=== PATIENT | male | born 1970 | race Caucasian/White ===

== ENCOUNTER 2020-05-21 06:07 | Day surgery (SDC) | payer BC ==
[2020-05-16 13:56] LABS: CARBON DIOXIDE 29.3 mmol/L (21-32); CREATININE SERUM 1.8 mg/dL (0.7-1.3)
[2020-05-16 14:22] LABS: PLATELET COUNT 492 x10^3mcL (130-400)
--- NOTE | 2020-05-17 17:47 | NUR ---
PER ANESTHESIOLOGIST DR HERNANDEZ TO REPEAT BMP ON ADMISSION.
[~2020-05-21] VITALS: Ht 188 cm; Wt 131.5 kg
[2020-05-21 06:37] VITALS: BP 126/75
[2020-05-21 07:28] LABS: CALCIUM 8.8 mg/dL (8.5-10.1); CARBON DIOXIDE 25.8 mmol/L (21-32); CREATININE SERUM 1.5 mg/dL (0.7-1.3); POTASSIUM SERUM 4.8 mmol/L (3.5-5.1)
[2020-05-21 16:30] VITALS: BP 122/78
== END 2020-05-21 16:05 | disposition home or self-care (01) ==
LOC: DS 06:07
PROVIDERS: ATTEND Podiatrist
DX: M86.8X7 Other osteomyelitis, ankle and foot (principal); E11.621 Type 2 diabetes mellitus with foot ulcer; E11.22 Type 2 diabetes mellitus with diabetic chronic kidney disease; I12.9 Hypertensive chronic kidney disease with stage 1 through stage 4 chronic kidney disease, or unspecified chronic kidney disease; N18.3 Chronic kidney disease, stage 3 (moderate); E11.42 Type 2 diabetes mellitus with diabetic polyneuropathy; E66.9 Obesity, unspecified; Z68.37 Body mass index [BMI] 37.0-37.9, adult; Z79.899 Other long term (current) drug therapy; Z79.84 Long term (current) use of oral hypoglycemic drugs
CPT/HCPCS: 36569; 82962; J2250; J2405; J2704; J3010; J3370; J3490; J7030; Q0092; U0003-CS

== ENCOUNTER 2020-06-11 14:16 | Inpatient (IN) | payer BC ==
[~2020-06-11] VITALS: Ht 188 cm; Wt 135.2 kg
[2020-06-11 14:33] VITALS: Ht 188 cm; Wt 135.2 kg
[2020-06-11 16:33] LABS: BASOPHIL % 0.3 % (0-2); PLATELET COUNT 329 x10^3mcL (130-400)
[2020-06-11 16:36] LABS: RED CELL DISTRIBUTION WIDTH 17.3 % (11.5-14.5)
[2020-06-11 16:50] LABS: ALBUMIN 3.1 g/dL (3.4-5.0); BILIRUBIN TOTAL 0.4 mg/dL (0.20-1.00); CREATININE SERUM 1.4 mg/dL (0.7-1.3); POTASSIUM SERUM 4.8 mmol/L (3.5-5.1); TOTAL PROTEIN, SERUM 9.1 g/dL (6.4-8.2)
[2020-06-11] MEDS ORDERED: KAPSPARGO SPRI100 MG PO (17:18)
[2020-06-11] MEDS ORDERED: ZESTRIL20 MG PO (17:19)
[2020-06-11] MEDS ORDERED: JANUVIA100 M1 PO (17:19)
[2020-06-11] MEDS ORDERED: METFORMIN500 M1 PO (17:19)
[2020-06-11] MEDS ORDERED: NORCO 10-325 T1 EACH PO (17:20)
[2020-06-11] MEDS ORDERED: LASIX20 MG PO (17:20)
[2020-06-11] MEDS ORDERED: VANCOCIN125 MG PO (17:21)
[2020-06-11 18:54] LABS: CHOLESTEROL/HDL RATIO 7.8; MAGNESIUM 2.2 mg/dL (1.8-2.4); PHOSPHOROUS 4.4 mg/dL (2.5-4.9)
[2020-06-11 22:16] VITALS: BP 129/86
[2020-06-12 05:28] VITALS: BP 134/86
[2020-06-12 06:31] LABS: BASOPHIL % 0.6 % (0-2); PLATELET COUNT 237 x10^3mcL (130-400)
[2020-06-12 06:39] LABS: RED CELL DISTRIBUTION WIDTH 17.2 % (11.5-14.5)
[2020-06-12 06:44] LABS: CALCIUM 8.5 mg/dL (8.5-10.1); CARBON DIOXIDE 16.9 mmol/L (21-32); CREATININE SERUM 1.5 mg/dL (0.7-1.3); MAGNESIUM 2.5 mg/dL (1.8-2.4); PHOSPHOROUS 4.6 mg/dL (2.5-4.9); POTASSIUM SERUM 4.9 mmol/L (3.5-5.1)
[2020-06-12 08:33] VITALS: BP 125/73
[2020-06-12 12:04] VITALS: BP 133/84
[2020-06-12 16:08] VITALS: BP 120/76
[2020-06-12 20:57] VITALS: BP 142/89
[2020-06-13 05:23] VITALS: BP 144/82
[2020-06-13 12:16] VITALS: BP 112/52
[2020-06-13 12:17] LABS: BASOPHIL % 0.6 % (0-2); PLATELET COUNT 243 x10^3mcL (130-400)
[2020-06-13 12:22] LABS: RED CELL DISTRIBUTION WIDTH 17.4 % (11.5-14.5)
[2020-06-13 12:30] LABS: CALCIUM 8.5 mg/dL (8.5-10.1); CARBON DIOXIDE 26.1 mmol/L (21-32); CHLORIDE SERUM 103 mmol/L (98-107); CREATININE SERUM 1.3 mg/dL (0.7-1.3); GFR1 > 60 mL/min; GLUCOSE SERUM 99 mg/dL (74-106); PHOSPHOROUS 4.2 mg/dL (2.5-4.9); SODIUM SERUM 135 mmol/L (136-145)
[2020-06-13 13:04] LABS: POTASSIUM SERUM 5.6 mmol/L (3.5-5.1)
[2020-06-13 15:59] VITALS: BP 113/69
[2020-06-13 20:32] VITALS: BP 125/78
[2020-06-13 20:58] LABS: CALCIUM 8.3 mg/dL (8.5-10.1); CARBON DIOXIDE 26.4 mmol/L (21-32); CREATININE SERUM 1.4 mg/dL (0.7-1.3); POTASSIUM SERUM 4.8 mmol/L (3.5-5.1)
[2020-06-14 05:24] VITALS: BP 140/83
[2020-06-14 09:26] VITALS: BP 111/78
[2020-06-14 13:23] VITALS: BP 132/72
[2020-06-14 18:12] VITALS: BP 141/82
[2020-06-14 21:17] VITALS: BP 132/70
[2020-06-15 06:19] LABS: CALCIUM 9.1 mg/dL (8.5-10.1); CARBON DIOXIDE 28.5 mmol/L (21-32); CREATININE SERUM 1.4 mg/dL (0.7-1.3); PHOSPHOROUS 4.3 mg/dL (2.5-4.9); POTASSIUM SERUM 4.8 mmol/L (3.5-5.1)
[2020-06-15 06:21] VITALS: BP 143/78
[2020-06-15 06:21] LABS: ALBUMIN 2.7 g/dL (3.4-5.0); BASOPHIL % 0.6 % (0-2); PLATELET COUNT 204 x10^3mcL (130-400); RED CELL DISTRIBUTION WIDTH 17.7 % (11.5-14.5)
[2020-06-15 09:46] VITALS: BP 140/76
[2020-06-15 14:06] VITALS: BP 136/72
[2020-06-15 18:25] VITALS: BP 140/83
[2020-06-15 21:11] VITALS: BP 127/81
[2020-06-16 05:14] VITALS: BP 132/60
[2020-06-16 08:26] VITALS: BP 128/76
[2020-06-16] MEDS ORDERED: KAPSPARGO SPRI100 MG PO (14:08)
[2020-06-16] MEDS ORDERED: ZESTRIL20 MG PO (14:09)
[2020-06-16] MEDS ORDERED: LASIX20 MG PO (14:11)
[2020-06-16] MEDS ORDERED: METFORMIN500 M1 PO (14:12)
[2020-06-16] MEDS ORDERED: JANUVIA100 M1 PO (14:12)
[2020-06-16] MEDS ORDERED: VANCOMYCIN IV (14:32)
[2020-06-16 17:00] VITALS: BP 128/58
== END 2020-06-16 17:35 | disposition home health service (06) | DRG 617 ==
LOC: ED 14:16 → MU 17:32
PROVIDERS: Emergency Medicine; Podiatrist Foot & Ankle Surgery; ADMIT Internal Medicine; ATTEND Internal Medicine
PROC: 0Y6N0Z9 Detachment at Left Foot, Partial 1st Ray, Open Approach (ICD-10-PCS; principal; 2020-06-13 07:30)
DX: E11.69 Type 2 diabetes mellitus with other specified complication (principal); M86.8X7 Other osteomyelitis, ankle and foot; I10 Essential (primary) hypertension; E11.9 Type 2 diabetes mellitus without complications; E11.43 Type 2 diabetes mellitus with diabetic autonomic (poly)neuropathy; K31.84 Gastroparesis; Z88.0 Allergy status to penicillin; Z88.1 Allergy status to other antibiotic agents; Z88.8 Allergy status to other drugs, medicaments and biological substances; Z89.022 Acquired absence of left finger(s); Z79.899 Other long term (current) drug therapy; Z79.84 Long term (current) use of oral hypoglycemic drugs; Z79.891 Long term (current) use of opiate analgesic; Z20.828 Contact with and (suspected) exposure to other viral communicable diseases
CPT/HCPCS: 82962; 83880; C9113; G0378; J0610; J1170; J1885; J3010; J3370; J3490; J7030; Q0092; U0003-CS